=== PATIENT | male | born 1940 | race Caucasian/White ===

== ENCOUNTER → 2019-11-03 10:48 | Outpatient (BNVA) | payer MEDICARE, SELFPAY | PROVIDERS: Family Provider Family Medicine; Visit Provider Internal Medicine Cardiovascular Disease | DX: E78.2 Mixed hyperlipidemia (principal) | CPT/HCPCS: 80061; 80076 ==

== ENCOUNTER → 2020-12-01 09:03 | Outpatient (BNVA) | payer OTHER, SELFPAY | PROVIDERS: Family Provider Family Medicine; Visit Provider Internal Medicine Cardiovascular Disease | DX: E78.2 Mixed hyperlipidemia (principal); E78.5 Hyperlipidemia, unspecified | CPT/HCPCS: 80061 ==

== ENCOUNTER 2021-05-02 08:43 | Outpatient (CLI) | payer MEDICARE, SELFPAY ==
[2021-05-02 09:46] LABS: Chol HDL Ratio 2.94 mg/dL (1.0-5.00); Cholesterol 138 mg/dL (0-200); HDL Cholesterol 47 mg/dL (60-100); LDL Cholesterol Calculated 62 mg/dL (50-129); LDL HDL Ratio 1.32 RATIO (0.00-3.22); Triglycerides 145 mg/dL (0-150)
== END 2021-05-02 08:44 | disposition home or self-care (01) ==
PROVIDERS: Visit Provider Internal Medicine Cardiovascular Disease
DX: E78.2 Mixed hyperlipidemia (principal)
CPT/HCPCS: 80061

== ENCOUNTER → 2021-12-25 10:35 | Outpatient (BNVA) | payer MEDICARE, SELFPAY | PROVIDERS: Visit Provider Internal Medicine Cardiovascular Disease | DX: I10 Essential (primary) hypertension (principal); I47.1 Supraventricular tachycardia; E78.2 Mixed hyperlipidemia; Z87.891 Personal history of nicotine dependence | CPT/HCPCS: 99213 ==

== ENCOUNTER → 2023-01-16 10:01 | Outpatient (BNVA) | payer MEDICARE, SELFPAY | PROVIDERS: Visit Provider Internal Medicine Cardiovascular Disease | DX: I47.10 Supraventricular tachycardia, unspecified (principal); E78.2 Mixed hyperlipidemia; I10 Essential (primary) hypertension; Z87.891 Personal history of nicotine dependence | CPT/HCPCS: 99214 ==

== ENCOUNTER 2023-01-28 06:30 | Outpatient (CLI) | payer MEDICARE, SELFPAY ==
[2023-01-28 07:07] LABS: Alanine Aminotransferase 36 U/L (0-41); Albumin Level 4.4 g/dL (3.5-5.2); Alkaline Phosphatase 81 U/L (40-130); Aspartate Amino Transferase 25 U/L (0-40); Cholesterol 139 mg/dL (0-200); Globulin 2.8 g/dL (1.3-4.6); HDL Cholesterol 58 mg/dL (60-100); LDL Cholesterol Calculated 59 mg/dL (50-129); LDL HDL Ratio 1.02 RATIO (0.00-3.22); Total Bilirubin 0.5 mg/dL (0.15-1.2); Total Protein 7.2 g/dL (6.6-8.7); Triglycerides 109 mg/dL (0-150)
== END 2023-01-28 06:31 | disposition home or self-care (01) ==
LOC: LAB 06:32
PROVIDERS: Visit Provider Internal Medicine Cardiovascular Disease
DX: E78.5 Hyperlipidemia, unspecified (principal)
CPT/HCPCS: 36415; 80061; 80076

== ENCOUNTER → 2024-01-20 10:42 | Outpatient (BNVA) | payer MEDICARE, SELFPAY | PROVIDERS: Visit Provider Internal Medicine Cardiovascular Disease | DX: E78.2 Mixed hyperlipidemia (principal); I10 Essential (primary) hypertension; I47.10 Supraventricular tachycardia, unspecified; Z87.891 Personal history of nicotine dependence | CPT/HCPCS: 36415; 80061; 80076; 99214 ==

== ENCOUNTER → 2024-07-20 10:34 | Outpatient (BNVA) | payer MEDICARE, SELFPAY | PROVIDERS: Visit Provider Nurse Practitioner Family | DX: I10 Essential (primary) hypertension (principal); I47.10 Supraventricular tachycardia, unspecified; E78.2 Mixed hyperlipidemia; Z79.82 Long term (current) use of aspirin; Z87.891 Personal history of nicotine dependence | CPT/HCPCS: 36415; 80048; 85025; 99213 ==